=== PATIENT | male | born 1930 | race African-American/Black ===

== ENCOUNTER 2018-11-08 10:22 | Inpatient (IN) | payer MEDICARE, OTHER ==
[2018-11-08] MEDS: SOD CHLORIDE 0.9% 1,000 ML IV ×2 (10:50→15:09)
[2018-11-08 11:10] LABS: ADD MAN DIFF? NO; BASOPHIL # 0.1 10^3/ul (0.0-0.1); BASOPHILS % 0.7 % (0.0-2.0); EOSINOPHILS # 0.1 10^3/ul (0.0-0.5); EOSINOPHILS % 0.5 % (0.0-7.0); HEMATOCRIT 49.5 % (42.0-52.0); HEMOGLOBIN 15.3 g/dl (14.0-18.0); LYMPHOCYTES # 1.4 10^3/ul (0.8-2.9); LYMPHOCYTES % 9.8 % (15.0-51.0); MEAN CORPUSCULAR HEMOGLOBIN 31.2 pg (29.0-33.0); MEAN CORPUSCULAR HGB CONC 30.9 g/dl (32.0-37.0); MEAN CORPUSCULAR VOLUME 100.8 fl (82.0-101.0); MEAN PLATELET VOLUME 12.4 fl (7.4-10.4); MONOCYTE # 0.9 10^3/ul (0.3-0.9); MONOCYTES % 5.9 % (0.0-11.0); NEUTROPHILS % 82.6 % (39.0-77.0); PLATELET COUNT 198 10^3/UL (140-415); RED BLOOD COUNT 4.91 10^6/ul (4.70-6.10); RED CELL DISTRIBUTION WIDTH 14.6 % (11.5-14.5)
[2018-11-08 11:10] LABS: WHITE BLOOD COUNT 14.5 10^3/ul (4.8-10.8)
[2018-11-08 11:31] LABS: ALANINE AMINOTRANSFERASE 29 IU/L (13-69); ALBUMIN 4.5 g/dl (3.3-4.9); ALKALINE PHOSPHATASE 96 IU/L (42-121); ANION GAP 22 (5-13); ASPARTATE AMINO TRANSFERASE 22 IU/L (15-46); BILIRUBIN,INDIRECT 0.1 mg/dl (0-1.1); BILIRUBIN,TOTAL 0.1 mg/dl (0.2-1.3); CALCIUM 11.6 mg/dl (8.4-10.2); CARBON DIOXIDE 25 mmol/L (21-31); CHLORIDE 110 mmol/L (97-110); CREATININE 3.05 mg/dl (0.61-1.24); GLUCOSE 148 mg/dl (70-220); POTASSIUM 5.2 mmol/L (3.5-5.1); SODIUM 157 mmol/L (135-144); TOTAL PROTEIN 7.3 g/dl (6.1-8.1)
[2018-11-08 11:42] LABS: BLOOD UREA NITROGEN 121 mg/dl (7-20); TROPONIN-I 0.099 ng/ml (0.000-0.120)
[2018-11-08 11:46] LABS: FREE THYROXINE INDEX (Calc) 4.01 ug/ml (0.65-3.89); T3 UPTAKE 36.8 % (23.5-40.5); T4 (THYROXINE) 10.9 ug/dl (5.5-11.0)
[2018-11-08] MEDS ORDERED: ONDANSETRON 4 MG INJ IV ×2 (12:30)
[2018-11-08] MEDS ORDERED: NACL 0.9% 3 ML SYG IV (12:30)
[2018-11-08] MEDS ORDERED: ACETAMINOPHEN 325 MG TAB PO ×2 (12:30)
[2018-11-08] MEDS ORDERED: GLUCOSE GEL 15 GRAM TUBE BUCCAL (13:00)
[2018-11-08] MEDS ORDERED: GLUCOSE GEL 15 GRAM TUBE PO ×2 (13:00)
[2018-11-08] MEDS ORDERED: GLUCAGON 1 MG INJ IM (13:00)
[2018-11-08] MEDS ORDERED: DEXTROSE 50% 50 ML SYRINGE IV ×2 (13:00)
[2018-11-08] MEDS: INSULIN ASPART [NOVOLOG] 3 ML PEN SC ×3 (13:00→20:59)
[2018-11-08] MEDS: SOD CHLORIDE 0.45% 1,000 ML IV (18:06)
[2018-11-08 20:01] LABS: SODIUM,URINE RANDOM 19 mmol/L (30-90)
[2018-11-08 20:04] LABS: ADD UMIC YES; UR ASCORBIC ACID NEGATIVE (NEGATIVE); UR BACTERIA FEW /HPF (NONE SEEN); UR BILIRUBIN (Dip) NEGATIVE (NEGATIVE); UR BLOOD (Dip) NEGATIVE (NEGATIVE); UR CLARITY CLEAR (CLEAR); UR COLOR YELLOW (YELLOW); UR GLUCOSE (Dip) NEGATIVE (NEGATIVE); UR KETONES (Dip) TRACE mg/dL (NEGATIVE); UR LEUKOCYTE ESTERASE (Dip) NEGATIVE Leu/ul (NEGATIVE); UR NITRITE (Dip) NEGATIVE (NEGATIVE); UR RBC 2 /HPF (0-5); UR SPECIFIC GRAVITY (Dip) 1.017 (1.003-1.030); UR TOTAL PROTEIN (Dip) 1+ mg/dl (NEGATIVE); UR UROBILINOGEN (Dip) NEGATIVE (NEGATIVE); UR WBC 3 /HPF (0-5)
[2018-11-08 20:10] LABS: CREATININE,URINE RANDOM 119.87 mg/dl (20-370); PROTEIN/CREAT RATIO 0.34 RATIO
[2018-11-09] MEDS: INSULIN ASPART [NOVOLOG] 3 ML PEN SC ×6 (01:00→21:00)
[2018-11-09] MEDS: ACCU-CHEK XX (02:00)
[2018-11-09 05:56] LABS: ADD MAN DIFF? NO
[2018-11-09 06:01] LABS: WHITE BLOOD COUNT 12.7 10^3/ul (4.8-10.8)
[2018-11-09 06:01] LABS: BASOPHIL # 0.1 10^3/ul (0.0-0.1); BASOPHILS % 0.6 % (0.0-2.0); EOSINOPHILS # 0.1 10^3/ul (0.0-0.5); EOSINOPHILS % 1.1 % (0.0-7.0); HEMATOCRIT 40.3 % (42.0-52.0); HEMOGLOBIN 12.6 g/dl (14.0-18.0); LYMPHOCYTES % 7.6 % (15.0-51.0); MEAN CORPUSCULAR HEMOGLOBIN 31.3 pg (29.0-33.0); MEAN CORPUSCULAR HGB CONC 31.3 g/dl (32.0-37.0); MONOCYTES % 7.9 % (0.0-11.0); NEUTROPHIL # 10.5 10^3/ul (1.6-7.5); NEUTROPHILS % 82.4 % (39.0-77.0); PLATELET COUNT 154 10^3/UL (140-415); RED BLOOD COUNT 4.03 10^6/ul (4.70-6.10); RED CELL DISTRIBUTION WIDTH 14.6 % (11.5-14.5)
[2018-11-09] MEDS: SOD CHLORIDE 0.45% 1,000 ML IV ×2 (06:10→21:29)
[2018-11-09] MEDS: PANTOPRAZOLE 40 MG INJ IV (06:13)
[2018-11-09 06:35] LABS: ALANINE AMINOTRANSFERASE 19 IU/L (13-69); ALBUMIN 3.6 g/dl (3.3-4.9); ALBUMIN/GLOBULIN RATIO 1.38; ALKALINE PHOSPHATASE 75 IU/L (42-121); ANION GAP 14 (5-13); ASPARTATE AMINO TRANSFERASE 22 IU/L (15-46); BILIRUBIN,INDIRECT 0.1 mg/dl (0-1.1); BILIRUBIN,TOTAL 0.1 mg/dl (0.2-1.3); BLOOD UREA NITROGEN 113 mg/dl (7-20); CALCIUM 10.9 mg/dl (8.4-10.2); CARBON DIOXIDE 22 mmol/L (21-31); CHLORIDE 119 mmol/L (97-110); CREATININE 2.36 mg/dl (0.61-1.24); GLUCOSE 123 mg/dl (70-220); POTASSIUM 4.2 mmol/L (3.5-5.1); SODIUM 155 mmol/L (135-144); TOTAL PROTEIN 6.2 g/dl (6.1-8.1)
[2018-11-09 06:44] LABS: URIC ACID 16.2 mg/dl (3.1-7.9)
[2018-11-09 06:45] LABS: CREATINE KINASE < 20 IU/L (23-200)
[2018-11-09] MEDS: ALLOPURINOL 100 MG TAB PO (21:20)
[2018-11-09] MEDS: CINACALCET 30 MG TAB PO (21:22)
[2018-11-10] MEDS: ACCU-CHEK XX (02:00)
[2018-11-10] MEDS: PANTOPRAZOLE 40 MG INJ IV (05:27)
[2018-11-10 07:24] LABS: ADD MAN DIFF? NO
[2018-11-10] MEDS: INSULIN ASPART [NOVOLOG] 3 ML PEN SC ×4 (07:30→21:00)
[2018-11-10 07:59] LABS: ABNORMAL IP MESSAGE 1; BASOPHIL # 0.1 10^3/ul (0.0-0.1); BASOPHILS % 0.6 % (0.0-2.0); EOSINOPHILS # 0.3 10^3/ul (0.0-0.5); EOSINOPHILS % 2.9 % (0.0-7.0); HEMATOCRIT 38.6 % (42.0-52.0); LYMPHOCYTES # 0.9 10^3/ul (0.8-2.9); MEAN CORPUSCULAR HEMOGLOBIN 31.5 pg (29.0-33.0); MEAN CORPUSCULAR HGB CONC 31.1 g/dl (32.0-37.0); MEAN CORPUSCULAR VOLUME 101.3 fl (82.0-101.0); MEAN PLATELET VOLUME 13.1 fl (7.4-10.4); MONOCYTE # 0.9 10^3/ul (0.3-0.9); MONOCYTES % 10.1 % (0.0-11.0); NEUTROPHIL # 6.5 10^3/ul (1.6-7.5); NEUTROPHILS % 76.1 % (39.0-77.0); PLATELET COUNT 130 10^3/UL (140-415); POSITIVE DIFF @See below; RED BLOOD COUNT 3.81 10^6/ul (4.70-6.10); RED CELL DISTRIBUTION WIDTH 14.7 % (11.5-14.5)
[2018-11-10 07:59] LABS: WHITE BLOOD COUNT 8.6 10^3/ul (4.8-10.8)
[2018-11-10] MEDS: ATORVASTATIN 40 MG TAB PO (09:14)
[2018-11-10] MEDS: CLOPIDOGREL 75 MG TAB PO (09:14)
[2018-11-10] MEDS: ALLOPURINOL 100 MG TAB PO ×2 (09:15→21:22)
[2018-11-10] MEDS: CINACALCET 30 MG TAB PO ×2 (09:15→21:22)
[2018-11-10] MEDS: BALSAM PERU/CASTOR OIL 60 GM TUBE TOP ×2 (09:16→21:23)
[2018-11-10 10:28] LABS: ALBUMIN 3.3 g/dl (3.3-4.9); ANION GAP 11 (5-13); BLOOD UREA NITROGEN 77 mg/dl (7-20); CALCIUM 10.4 mg/dl (8.4-10.2); CARBON DIOXIDE 26 mmol/L (21-31); CHLORIDE 116 mmol/L (97-110); CREATININE 1.69 mg/dl (0.61-1.24); GLUCOSE 93 mg/dl (70-220); MAGNESIUM 1.6 mg/dl (1.7-2.5); PHOSPHORUS 3.1 mg/dl (2.5-4.9); SODIUM 153 mmol/L (135-144)
[2018-11-10] MEDS: SOD CHLORIDE 0.45% 1,000 ML IV (11:56)
[2018-11-10] MEDS: MAGNESIUM SULFATE 2 GM/50 ML 50 ML IVPB (17:51)
[2018-11-11] MEDS: ACCU-CHEK XX (02:00)
[2018-11-11] MEDS: SOD CHLORIDE 0.45% 1,000 ML IV ×2 (02:11→07:30)
[2018-11-11] MEDS: PANTOPRAZOLE 40 MG INJ IV (06:03)
[2018-11-11 06:24] LABS: ADD MAN DIFF? NO
[2018-11-11 06:29] LABS: WHITE BLOOD COUNT 6.9 10^3/ul (4.8-10.8)
[2018-11-11 06:29] LABS: ABNORMAL IP MESSAGE 1; BASOPHILS % 0.4 % (0.0-2.0); EOSINOPHILS # 0.2 10^3/ul (0.0-0.5); EOSINOPHILS % 2.7 % (0.0-7.0); HEMATOCRIT 36.9 % (42.0-52.0); HEMOGLOBIN 11.6 g/dl (14.0-18.0); LYMPHOCYTES # 0.7 10^3/ul (0.8-2.9); LYMPHOCYTES % 10.3 % (15.0-51.0); MEAN CORPUSCULAR HEMOGLOBIN 30.5 pg (29.0-33.0); MEAN CORPUSCULAR HGB CONC 31.4 g/dl (32.0-37.0); MEAN CORPUSCULAR VOLUME 97.1 fl (82.0-101.0); MEAN PLATELET VOLUME 13.3 fl (7.4-10.4); MONOCYTE # 0.8 10^3/ul (0.3-0.9); MONOCYTES % 11.1 % (0.0-11.0); NEUTROPHIL # 5.2 10^3/ul (1.6-7.5); NEUTROPHILS % 75.2 % (39.0-77.0); PLATELET COUNT 121 10^3/UL (140-415); POSITIVE DIFF @See below; RED CELL DISTRIBUTION WIDTH 14.6 % (11.5-14.5)
[2018-11-11 07:04] LABS: ALBUMIN 3.1 g/dl (3.3-4.9); ANION GAP 6 (5-13); BLOOD UREA NITROGEN 51 mg/dl (7-20); CALCIUM 9.6 mg/dl (8.4-10.2); CARBON DIOXIDE 27 mmol/L (21-31); CHLORIDE 116 mmol/L (97-110); CREATININE 1.34 mg/dl (0.61-1.24); GLUCOSE 93 mg/dl (70-220); PHOSPHORUS 2.2 mg/dl (2.5-4.9); POTASSIUM 3.3 mmol/L (3.5-5.1); SODIUM 149 mmol/L (135-144)
[2018-11-11] MEDS: INSULIN ASPART [NOVOLOG] 3 ML PEN SC ×4 (08:34→20:57)
[2018-11-11] MEDS: ALLOPURINOL 100 MG TAB PO ×2 (09:23→20:57)
[2018-11-11] MEDS: ATORVASTATIN 40 MG TAB PO (09:24)
[2018-11-11] MEDS: CINACALCET 30 MG TAB PO ×2 (09:24→20:57)
[2018-11-11] MEDS: CLOPIDOGREL 75 MG TAB PO (09:24)
[2018-11-11] MEDS: BALSAM PERU/CASTOR OIL 60 GM TUBE TOP ×2 (09:24→21:12)
[2018-11-11] MEDS: POTASSIUM PHOSPHATE 40 MEQ in SOD CHLORIDE 0.9% 250 ML IVPB (10:05)
[2018-11-11] MEDS: D5W + KCL 20 MEQ 1,000 ML IV ×2 (10:05→23:50)
[2018-11-12] MEDS: ACCU-CHEK XX (02:00)
[2018-11-12 05:48] LABS: ADD MAN DIFF? NO
[2018-11-12 05:54] LABS: ABNORMAL IP MESSAGE 1; BASOPHILS % 0.5 % (0.0-2.0); EOSINOPHILS # 0.1 10^3/ul (0.0-0.5); EOSINOPHILS % 2.1 % (0.0-7.0); HEMATOCRIT 34.6 % (42.0-52.0); HEMOGLOBIN 10.8 g/dl (14.0-18.0); LYMPHOCYTES # 0.7 10^3/ul (0.8-2.9); LYMPHOCYTES % 12.9 % (15.0-51.0); MEAN CORPUSCULAR HEMOGLOBIN 30.9 pg (29.0-33.0); MEAN CORPUSCULAR HGB CONC 31.2 g/dl (32.0-37.0); MEAN CORPUSCULAR VOLUME 99.1 fl (82.0-101.0); MEAN PLATELET VOLUME 13.6 fl (7.4-10.4); MONOCYTE # 0.7 10^3/ul (0.3-0.9); MONOCYTES % 13.2 % (0.0-11.0); NEUTROPHILS % 70.9 % (39.0-77.0); PLATELET COUNT 104 10^3/UL (140-415); POSITIVE DIFF @See below; RED BLOOD COUNT 3.49 10^6/ul (4.70-6.10); RED CELL DISTRIBUTION WIDTH 14.5 % (11.5-14.5)
[2018-11-12 05:54] LABS: WHITE BLOOD COUNT 5.6 10^3/ul (4.8-10.8)
[2018-11-12 06:25] LABS: ALBUMIN 2.8 g/dl (3.3-4.9); ANION GAP 6 (5-13); BLOOD UREA NITROGEN 38 mg/dl (7-20); CALCIUM 8.5 mg/dl (8.4-10.2); CARBON DIOXIDE 26 mmol/L (21-31); CHLORIDE 110 mmol/L (97-110); CREATININE 1.33 mg/dl (0.61-1.24); GLUCOSE 103 mg/dl (70-220); MAGNESIUM 1.5 mg/dl (1.7-2.5); PHOSPHORUS 2.8 mg/dl (2.5-4.9); POTASSIUM 3.4 mmol/L (3.5-5.1); SODIUM 142 mmol/L (135-144)
[2018-11-12] MEDS: PANTOPRAZOLE 40 MG INJ IV (06:48)
[2018-11-12] MEDS: D5W + KCL 20 MEQ 1,000 ML IV ×4 (06:49→22:56)
[2018-11-12] MEDS: INSULIN ASPART [NOVOLOG] 3 ML PEN SC ×4 (07:30→21:00)
[2018-11-12] MEDS: ALLOPURINOL 100 MG TAB PO ×2 (09:00→21:00)
[2018-11-12] MEDS: ATORVASTATIN 40 MG TAB PO (09:00)
[2018-11-12] MEDS: CINACALCET 30 MG TAB PO ×2 (09:00→21:00)
[2018-11-12] MEDS: BALSAM PERU/CASTOR OIL 60 GM TUBE TOP ×2 (09:01→21:05)
[2018-11-12] MEDS: CLOPIDOGREL 75 MG TAB PO (09:01)
[2018-11-12] MEDS: POTASSIUM CHLORIDE 100 ML IVPB (09:40)
[2018-11-12] MEDS ORDERED: POTASSIUM CHLORIDE (SR) 20 MEQ TAB PO (11:50)
[2018-11-12] MEDS: MAGNESIUM SULFATE 2 GM/50 ML 50 ML IVPB (11:52)
[2018-11-12] MEDS: POTASSIUM CHLORIDE 20 MEQ POWDER FOR ORAL SOLN PO (13:11)
[2018-11-12] MEDS: HEPARIN 5,000 UNIT/1 ML VIAL SC ×2 (13:13→21:04)
[2018-11-13] MEDS: ACCU-CHEK XX (02:00)
[2018-11-13] MEDS: PANTOPRAZOLE 40 MG INJ IV (06:17)
[2018-11-13 06:38] LABS: ANION GAP 9 (5-13); BLOOD UREA NITROGEN 26 mg/dl (7-20); CALCIUM 8.4 mg/dl (8.4-10.2); CARBON DIOXIDE 24 mmol/L (21-31); CHLORIDE 107 mmol/L (97-110); CREATININE 1.07 mg/dl (0.61-1.24); GLUCOSE 113 mg/dl (70-220); POTASSIUM 4.2 mmol/L (3.5-5.1); SODIUM 140 mmol/L (135-144)
[2018-11-13] MEDS: D5W + KCL 20 MEQ 1,000 ML IV ×4 (07:27→20:34)
[2018-11-13] MEDS: INSULIN ASPART [NOVOLOG] 3 ML PEN SC ×4 (07:30→20:24)
[2018-11-13] MEDS: CINACALCET 30 MG TAB PO ×2 (08:07→20:26)
[2018-11-13] MEDS: CLOPIDOGREL 75 MG TAB PO (08:08)
[2018-11-13] MEDS: ALLOPURINOL 100 MG TAB PO ×2 (08:08→20:26)
[2018-11-13] MEDS: ATORVASTATIN 40 MG TAB PO (08:09)
[2018-11-13] MEDS: BALSAM PERU/CASTOR OIL 60 GM TUBE TOP ×2 (08:11→20:32)
[2018-11-13] MEDS: HEPARIN 5,000 UNIT/1 ML VIAL SC ×2 (08:11→20:25)
[2018-11-14] MEDS: ACCU-CHEK XX (02:00)
[2018-11-14] MEDS: PANTOPRAZOLE 40 MG INJ IV (06:49)
[2018-11-14] MEDS: D5W + KCL 20 MEQ 1,000 ML IV ×2 (07:07→09:22)
[2018-11-14] MEDS: INSULIN ASPART [NOVOLOG] 3 ML PEN SC ×3 (07:30→17:16)
[2018-11-14] MEDS: ATORVASTATIN 40 MG TAB PO (09:25)
[2018-11-14] MEDS: ALLOPURINOL 100 MG TAB PO (09:25)
[2018-11-14] MEDS: CINACALCET 30 MG TAB PO (09:26)
[2018-11-14] MEDS: CLOPIDOGREL 75 MG TAB PO (09:26)
[2018-11-14] MEDS: HEPARIN 5,000 UNIT/1 ML VIAL SC (09:27)
[2018-11-14] MEDS: BALSAM PERU/CASTOR OIL 60 GM TUBE TOP (09:28)
== END 2018-11-14 17:35 | DRG 682 ==
LOC: E/R 10:22 → PP2 12:06
PROVIDERS: Internal Medicine
DX: N17.0 Acute kidney failure with tubular necrosis (principal); E43 Unspecified severe protein-calorie malnutrition; R64 Cachexia; Z68.1 Body mass index [BMI] 19.9 or less, adult; E87.0 Hyperosmolality and hypernatremia; R62.7 Adult failure to thrive; E86.0 Dehydration; I12.9 Hypertensive chronic kidney disease with stage 1 through stage 4 chronic kidney disease, or unspecified chronic kidney disease; E11.22 Type 2 diabetes mellitus with diabetic chronic kidney disease; N18.9 Chronic kidney disease, unspecified; F03.90 Unspecified dementia, unspecified severity, without behavioral disturbance, psychotic disturbance, mood disturbance, and anxiety; E78.5 Hyperlipidemia, unspecified; E87.5 Hyperkalemia; E21.3 Hyperparathyroidism, unspecified; I25.10 Atherosclerotic heart disease of native coronary artery without angina pectoris; E03.9 Hypothyroidism, unspecified; I25.2 Old myocardial infarction; Z95.5 Presence of coronary angioplasty implant and graft; Z86.73 Personal history of transient ischemic attack (TIA), and cerebral infarction without residual deficits
CPT/HCPCS: 70450; 71045; 76775; 80048; 80053; 80069; 81001; 81003; 82550; 82570; 82962; 83036; 83735; 84300; 84436; 84479; 84484; 84560; 85025; 89190; 92610; 93005; 96360; 97110; 97116; 97162; 97167; 97530; 97535; 99285-25

== ENCOUNTER 2018-11-23 19:11 | Inpatient (IN) | payer MEDICARE, OTHER ==
[2018-11-23 19:55] LABS: ADD MAN DIFF? NO
[2018-11-23 20:09] LABS: WHITE BLOOD COUNT 7.6 10^3/ul (4.8-10.8)
[2018-11-23 20:09] LABS: BASOPHIL # 0.1 10^3/ul (0.0-0.1); BASOPHILS % 0.8 % (0.0-2.0); EOSINOPHILS # 0.4 10^3/ul (0.0-0.5); EOSINOPHILS % 4.6 % (0.0-7.0); HEMOGLOBIN 11.6 g/dl (14.0-18.0); LYMPHOCYTES # 1.3 10^3/ul (0.8-2.9); LYMPHOCYTES % 16.4 % (15.0-51.0); MEAN CORPUSCULAR HEMOGLOBIN 30.8 pg (29.0-33.0); MEAN CORPUSCULAR HGB CONC 31.4 g/dl (32.0-37.0); MEAN CORPUSCULAR VOLUME 98.1 fl (82.0-101.0); MEAN PLATELET VOLUME 11.5 fl (7.4-10.4); MONOCYTE # 0.5 10^3/ul (0.3-0.9); MONOCYTES % 6.8 % (0.0-11.0); NEUTROPHIL # 5.4 10^3/ul (1.6-7.5); NEUTROPHILS % 71.1 % (39.0-77.0); PLATELET COUNT 207 10^3/UL (140-415); RED BLOOD COUNT 3.77 10^6/ul (4.70-6.10); RED CELL DISTRIBUTION WIDTH 14.5 % (11.5-14.5)
[2018-11-23] MEDS: CEFTRIAXONE 1 GM/50 ML (PMX) 50 ML IVPB (20:11)
[2018-11-23] MEDS: SODIUM CHLORIDE 0.9% 1L BAG IV* (20:11)
[2018-11-23 20:16] LABS: INR 0.86; PROTIME 11.8 Sec (11.9-14.9); PT RATIO 0.9
[2018-11-23 20:17] LABS: PARTIAL THROMBOPLASTIN TIME 25.8 Sec (23.0-35.0)
[2018-11-23 20:19] LABS: ALANINE AMINOTRANSFERASE 15 IU/L (13-69); ALBUMIN 3.5 g/dl (3.3-4.9); ALBUMIN/GLOBULIN RATIO 1.16; ALKALINE PHOSPHATASE 87 IU/L (42-121); ASPARTATE AMINO TRANSFERASE 24 IU/L (15-46); BILIRUBIN,INDIRECT 0.1 mg/dl (0-1.1); BILIRUBIN,TOTAL 0.1 mg/dl (0.2-1.3); BLOOD UREA NITROGEN 42 mg/dl (7-20); CALCIUM 10.2 mg/dl (8.4-10.2); CARBON DIOXIDE 30 mmol/L (21-31); CREATININE 1.65 mg/dl (0.61-1.24); GLUCOSE 119 mg/dl (70-220); POTASSIUM 4.9 mmol/L (3.5-5.1); SODIUM 145 mmol/L (135-144); TOTAL PROTEIN 6.5 g/dl (6.1-8.1)
[2018-11-23 20:26] LABS: ANION GAP 10 (5-13); CHLORIDE 105 mmol/L (97-110)
[2018-11-23] MEDS ORDERED: ACETAMINOPHEN 325 MG TAB PO (20:30)
[2018-11-23] MEDS ORDERED: ONDANSETRON 4 MG INJ IV (20:30)
[2018-11-23 20:31] LABS: TROPONIN-I 0.028 ng/ml (0.000-0.120)
[2018-11-23 21:29] LABS: ADD UMIC YES; UR ASCORBIC ACID NEGATIVE (NEGATIVE); UR BACTERIA FEW /HPF (NONE SEEN); UR BILIRUBIN (Dip) NEGATIVE (NEGATIVE); UR BLOOD (Dip) 2+ mg/dL (NEGATIVE); UR CLARITY CLEAR (CLEAR); UR COLOR YELLOW (YELLOW); UR GLUCOSE (Dip) NEGATIVE (NEGATIVE); UR KETONES (Dip) TRACE mg/dL (NEGATIVE); UR LEUKOCYTE ESTERASE (Dip) NEGATIVE Leu/ul (NEGATIVE); UR NITRITE (Dip) NEGATIVE (NEGATIVE); UR RBC 58 /HPF (0-5); UR SPECIFIC GRAVITY (Dip) 1.018 (1.003-1.030); UR TOTAL PROTEIN (Dip) NEGATIVE (NEGATIVE); UR UROBILINOGEN (Dip) NEGATIVE (NEGATIVE); UR WBC 8 /HPF (0-5)
[2018-11-24 01:13] LABS: LACTIC ACID 1.3 mmol/L (0.5-2.0)
[2018-11-24] MEDS ORDERED: metFORMIN 500 MG TAB PO (08:00)
[2018-11-24] MEDS: ACCU-CHEK XX ×4 (08:00→20:47)
[2018-11-24] MEDS: CINACALCET 30 MG TAB PO ×2 (09:00→21:00)
[2018-11-24] MEDS: CLOPIDOGREL 75 MG TAB PO (09:11)
[2018-11-24] MEDS: ZINC SULFATE 220 MG CAP PO (09:11)
[2018-11-24] MEDS: MULTIVITAMINS/MINERALS TAB PO (09:12)
[2018-11-24] MEDS: ASCORBIC ACID 500 MG TAB PO (09:13)
[2018-11-24] MEDS: ALLOPURINOL 100 MG TAB PO ×2 (09:15→20:42)
[2018-11-24] MEDS: D5W-0.45 NACL + KCL 20 MEQ 1,000 ML IV (17:15)
[2018-11-24] MEDS: ATORVASTATIN 40 MG TAB PO (20:42)
[2018-11-25] MEDS: D5W-0.45 NACL + KCL 20 MEQ 1,000 ML IV ×2 (04:51→17:26)
[2018-11-25] MEDS: CINACALCET 30 MG TAB PO ×2 (08:36→20:59)
[2018-11-25] MEDS: CLOPIDOGREL 75 MG TAB PO (08:36)
[2018-11-25] MEDS: MULTIVITAMINS/MINERALS TAB PO (08:36)
[2018-11-25] MEDS: ALLOPURINOL 100 MG TAB PO ×2 (08:37→20:59)
[2018-11-25] MEDS: ZINC SULFATE 220 MG CAP PO (08:37)
[2018-11-25] MEDS: ASCORBIC ACID 500 MG TAB PO (08:37)
[2018-11-25] MEDS: ACCU-CHEK XX ×4 (08:51→21:00)
[2018-11-25 12:19] LABS: ADD MAN DIFF? NO
[2018-11-25 12:22] LABS: WHITE BLOOD COUNT 5.1 10^3/ul (4.8-10.8)
[2018-11-25 12:22] LABS: BASOPHILS % 0.6 % (0.0-2.0); EOSINOPHILS # 0.2 10^3/ul (0.0-0.5); EOSINOPHILS % 4.8 % (0.0-7.0); HEMATOCRIT 35.6 % (42.0-52.0); HEMOGLOBIN 11.1 g/dl (14.0-18.0); LYMPHOCYTES # 0.7 10^3/ul (0.8-2.9); LYMPHOCYTES % 14.5 % (15.0-51.0); MEAN CORPUSCULAR HEMOGLOBIN 30.9 pg (29.0-33.0); MEAN CORPUSCULAR HGB CONC 31.2 g/dl (32.0-37.0); MEAN CORPUSCULAR VOLUME 99.2 fl (82.0-101.0); MEAN PLATELET VOLUME 11.3 fl (7.4-10.4); MONOCYTE # 0.3 10^3/ul (0.3-0.9); MONOCYTES % 6.5 % (0.0-11.0); NEUTROPHIL # 3.7 10^3/ul (1.6-7.5); NEUTROPHILS % 73.2 % (39.0-77.0); PLATELET COUNT 163 10^3/UL (140-415); RED BLOOD COUNT 3.59 10^6/ul (4.70-6.10); RED CELL DISTRIBUTION WIDTH 14.3 % (11.5-14.5)
[2018-11-25 12:41] LABS: ANION GAP 6 (5-13); BLOOD UREA NITROGEN 20 mg/dl (7-20); CALCIUM 10.1 mg/dl (8.4-10.2); CARBON DIOXIDE 27 mmol/L (21-31); CHLORIDE 109 mmol/L (97-110); CREATININE 1.17 mg/dl (0.61-1.24); GLUCOSE 118 mg/dl (70-220); POTASSIUM 4.4 mmol/L (3.5-5.1); SODIUM 142 mmol/L (135-144)
[2018-11-25] MEDS: ATORVASTATIN 40 MG TAB PO (20:59)
[2018-11-26] MEDS: D5W-0.45 NACL + KCL 20 MEQ 1,000 ML IV ×2 (06:02→17:30)
[2018-11-26 07:30] LABS: ADD MAN DIFF? NO
[2018-11-26 07:44] LABS: BASOPHILS % 0.4 % (0.0-2.0); EOSINOPHILS # 0.3 10^3/ul (0.0-0.5); EOSINOPHILS % 5.5 % (0.0-7.0); HEMOGLOBIN 10.8 g/dl (14.0-18.0); LYMPHOCYTES # 0.9 10^3/ul (0.8-2.9); LYMPHOCYTES % 17.2 % (15.0-51.0); MEAN CORPUSCULAR HEMOGLOBIN 30.9 pg (29.0-33.0); MEAN CORPUSCULAR HGB CONC 30.9 g/dl (32.0-37.0); MONOCYTE # 0.4 10^3/ul (0.3-0.9); MONOCYTES % 8.1 % (0.0-11.0); NEUTROPHIL # 3.4 10^3/ul (1.6-7.5); NEUTROPHILS % 68.4 % (39.0-77.0); PLATELET COUNT 148 10^3/UL (140-415); RED CELL DISTRIBUTION WIDTH 14.4 % (11.5-14.5)
[2018-11-26 07:44] LABS: WHITE BLOOD COUNT 4.9 10^3/ul (4.8-10.8)
[2018-11-26 08:01] LABS: ANION GAP 7 (5-13); BLOOD UREA NITROGEN 17 mg/dl (7-20); CALCIUM 9.4 mg/dl (8.4-10.2); CARBON DIOXIDE 26 mmol/L (21-31); CHLORIDE 107 mmol/L (97-110); GLUCOSE 113 mg/dl (70-220); SODIUM 140 mmol/L (135-144)
[2018-11-26] MEDS: MULTIVITAMINS/MINERALS TAB PO (08:47)
[2018-11-26] MEDS: ALLOPURINOL 100 MG TAB PO ×2 (08:47→21:00)
[2018-11-26] MEDS: ZINC SULFATE 220 MG CAP PO (08:47)
[2018-11-26] MEDS: ASCORBIC ACID 500 MG TAB PO (08:47)
[2018-11-26] MEDS: CINACALCET 30 MG TAB PO ×2 (08:47→21:00)
[2018-11-26] MEDS: ACCU-CHEK XX ×4 (08:47→21:00)
[2018-11-26] MEDS: CLOPIDOGREL 75 MG TAB PO (08:47)
[2018-11-26] MEDS: CEFAZOLIN 2 GM/50 ML (PMX) 50 ML IVPB (15:17)
[2018-11-26] MEDS: PROPOFOL 20 ML (15:17)
[2018-11-26] MEDS ORDERED: HYDROmorphONE 1 MG/5 ML IV SYRINGE IV (15:30)
[2018-11-26] MEDS ORDERED: ONDANSETRON 4 MG INJ IV (15:30)
[2018-11-26] MEDS: LIDOCAINE 2% (SDV) 5 ML INJ (18:30)
[2018-11-26] MEDS: ATORVASTATIN 40 MG TAB PO (21:00)
[2018-11-27] MEDS: D5W-0.45 NACL + KCL 20 MEQ 1,000 ML IV (04:51)
[2018-11-27] MEDS: ACCU-CHEK XX (07:00)
[2018-11-27] MEDS: CINACALCET 30 MG TAB PO ×2 (08:18→20:28)
[2018-11-27] MEDS: CLOPIDOGREL 75 MG TAB PO (08:18)
[2018-11-27] MEDS: MULTIVITAMINS/MINERALS TAB PO (08:19)
[2018-11-27] MEDS: ASCORBIC ACID 500 MG TAB PO (08:19)
[2018-11-27] MEDS: ALLOPURINOL 100 MG TAB PO ×2 (08:19→20:27)
[2018-11-27] MEDS: ZINC SULFATE 220 MG CAP PO (08:19)
[2018-11-27 08:50] LABS: ADD MAN DIFF? NO
[2018-11-27 08:58] LABS: WHITE BLOOD COUNT 5.9 10^3/ul (4.8-10.8)
[2018-11-27 08:58] LABS: ABNORMAL IP MESSAGE 1; BASOPHILS % 0.3 % (0.0-2.0); EOSINOPHILS # 0.1 10^3/ul (0.0-0.5); EOSINOPHILS % 1.4 % (0.0-7.0); HEMATOCRIT 35.7 % (42.0-52.0); HEMOGLOBIN 11.2 g/dl (14.0-18.0); LYMPHOCYTES # 0.5 10^3/ul (0.8-2.9); LYMPHOCYTES % 8.9 % (15.0-51.0); MEAN CORPUSCULAR HEMOGLOBIN 30.8 pg (29.0-33.0); MEAN CORPUSCULAR HGB CONC 31.4 g/dl (32.0-37.0); MEAN CORPUSCULAR VOLUME 98.1 fl (82.0-101.0); MEAN PLATELET VOLUME 12.2 fl (7.4-10.4); MONOCYTE # 0.4 10^3/ul (0.3-0.9); MONOCYTES % 7.2 % (0.0-11.0); NEUTROPHIL # 4.8 10^3/ul (1.6-7.5); NEUTROPHILS % 81.7 % (39.0-77.0); PLATELET COUNT 158 10^3/UL (140-415); POSITIVE DIFF @See below; RED BLOOD COUNT 3.64 10^6/ul (4.70-6.10); RED CELL DISTRIBUTION WIDTH 14.1 % (11.5-14.5)
[2018-11-27 09:20] LABS: ANION GAP 6 (5-13); BLOOD UREA NITROGEN 16 mg/dl (7-20); CALCIUM 9.8 mg/dl (8.4-10.2); CARBON DIOXIDE 28 mmol/L (21-31); CHLORIDE 106 mmol/L (97-110); CREATININE 1.07 mg/dl (0.61-1.24); GLUCOSE 124 mg/dl (70-220); POTASSIUM 4.7 mmol/L (3.5-5.1); SODIUM 140 mmol/L (135-144)
[2018-11-27] MEDS ORDERED: GLUCAGON 1 MG INJ IM (09:30)
[2018-11-27] MEDS ORDERED: GLUCOSE GEL 15 GRAM TUBE BUCCAL (09:30)
[2018-11-27] MEDS ORDERED: GLUCOSE GEL 15 GRAM TUBE PO ×2 (09:30)
[2018-11-27] MEDS ORDERED: DEXTROSE 50% 50 ML SYRINGE IV ×2 (09:30)
[2018-11-27] MEDS: INSULIN ASPART [NOVOLOG] 3 ML PEN SC ×2 (12:00→18:00)
[2018-11-27] MEDS: ATORVASTATIN 40 MG TAB PO (20:28)
[2018-11-28] MEDS: INSULIN ASPART [NOVOLOG] 3 ML PEN SC ×5 (00:11→23:31)
[2018-11-28] MEDS: ACETAMINOPHEN 325 MG TAB PO (02:19)
[2018-11-28] MEDS: D5W-0.45 NACL + KCL 20 MEQ 1,000 ML IV (02:19)
[2018-11-28] MEDS: ALLOPURINOL 100 MG TAB PO ×2 (08:35→20:25)
[2018-11-28] MEDS: CLOPIDOGREL 75 MG TAB PO (08:35)
[2018-11-28] MEDS: ZINC SULFATE 220 MG CAP PO (08:36)
[2018-11-28] MEDS: ASCORBIC ACID 500 MG TAB PO (08:36)
[2018-11-28] MEDS: MULTIVITAMINS/MINERALS TAB PO (08:36)
[2018-11-28] MEDS: CINACALCET 30 MG TAB PO ×2 (08:36→20:25)
[2018-11-28] MEDS: INFLUENZA VIRUS VACCINE 0.5 ML (DISPENSING) IM* (08:37)
[2018-11-28] MEDS: ATORVASTATIN 40 MG TAB PO (20:25)
[2018-11-29] MEDS: D5W-0.45 NACL + KCL 20 MEQ 1,000 ML IV ×2 (02:43→03:50)
[2018-11-29] MEDS: INSULIN ASPART [NOVOLOG] 3 ML PEN SC ×4 (06:29→23:33)
[2018-11-29] MEDS: CINACALCET 30 MG TAB PO ×2 (08:27→21:24)
[2018-11-29] MEDS: ALLOPURINOL 100 MG TAB PO ×2 (08:27→20:41)
[2018-11-29] MEDS: ZINC SULFATE 220 MG CAP PO (08:27)
[2018-11-29] MEDS: MULTIVITAMINS/MINERALS TAB PO (08:27)
[2018-11-29] MEDS: CLOPIDOGREL 75 MG TAB PO (08:27)
[2018-11-29] MEDS: ASCORBIC ACID 500 MG TAB PO (08:28)
[2018-11-29] MEDS: ATORVASTATIN 40 MG TAB PO (20:41)
[2018-11-30] MEDS: D5W-0.45 NACL + KCL 20 MEQ 1,000 ML IV (03:47)
[2018-11-30] MEDS: INSULIN ASPART [NOVOLOG] 3 ML PEN SC ×3 (06:37→17:41)
[2018-11-30] MEDS: CLOPIDOGREL 75 MG TAB PO (08:26)
[2018-11-30] MEDS: MULTIVITAMINS/MINERALS TAB PO (08:26)
[2018-11-30] MEDS: ALLOPURINOL 100 MG TAB PO ×2 (08:28→20:44)
[2018-11-30] MEDS: ZINC SULFATE 220 MG CAP PO (08:28)
[2018-11-30] MEDS: ASCORBIC ACID 500 MG TAB PO (08:28)
[2018-11-30] MEDS: CINACALCET 30 MG TAB PO ×3 (08:28→20:44)
[2018-11-30] MEDS: ACETAMINOPHEN 325 MG TAB PO (20:43)
[2018-11-30] MEDS: SENNA TAB PO (20:44)
[2018-11-30] MEDS: ATORVASTATIN 40 MG TAB PO (20:44)
[2018-12-01] MEDS: INSULIN ASPART [NOVOLOG] 3 ML PEN SC ×3 (05:48→12:13)
[2018-12-01] MEDS: D5W-0.45 NACL + KCL 20 MEQ 1,000 ML IV (05:49)
[2018-12-01 06:39] LABS: ADD MAN DIFF? NO
[2018-12-01 06:59] LABS: WHITE BLOOD COUNT 3.4 10^3/ul (4.8-10.8)
[2018-12-01 06:59] LABS: BASOPHILS % 0.6 % (0.0-2.0); EOSINOPHILS # 0.1 10^3/ul (0.0-0.5); EOSINOPHILS % 1.7 % (0.0-7.0); HEMATOCRIT 31.1 % (42.0-52.0); HEMOGLOBIN 9.7 g/dl (14.0-18.0); LYMPHOCYTES # 0.9 10^3/ul (0.8-2.9); LYMPHOCYTES % 25.3 % (15.0-51.0); MEAN CORPUSCULAR HGB CONC 31.2 g/dl (32.0-37.0); MEAN CORPUSCULAR VOLUME 99.4 fl (82.0-101.0); MEAN PLATELET VOLUME 12.4 fl (7.4-10.4); MONOCYTE # 0.4 10^3/ul (0.3-0.9); MONOCYTES % 10.8 % (0.0-11.0); NEUTROPHIL # 2.1 10^3/ul (1.6-7.5); PLATELET COUNT 137 10^3/UL (140-415); RED BLOOD COUNT 3.13 10^6/ul (4.70-6.10); RED CELL DISTRIBUTION WIDTH 14.5 % (11.5-14.5)
[2018-12-01 07:08] LABS: ANION GAP 12 (5-13); BLOOD UREA NITROGEN 24 mg/dl (7-20); CALCIUM 8.1 mg/dl (8.4-10.2); CARBON DIOXIDE 25 mmol/L (21-31); CHLORIDE 94 mmol/L (97-110); CREATININE 0.93 mg/dl (0.61-1.24); GLUCOSE 149 mg/dl (70-220); POTASSIUM 4.6 mmol/L (3.5-5.1); SODIUM 131 mmol/L (135-144)
[2018-12-01] MEDS: ZINC SULFATE 220 MG CAP PO (09:09)
[2018-12-01] MEDS: CLOPIDOGREL 75 MG TAB PO (09:10)
[2018-12-01] MEDS: ALLOPURINOL 100 MG TAB PO (09:10)
[2018-12-01] MEDS: ASCORBIC ACID 500 MG TAB PO (09:10)
[2018-12-01] MEDS: SENNA TAB PO (09:10)
[2018-12-01] MEDS: MULTIVITAMINS/MINERALS TAB PO (09:10)
[2018-12-01] MEDS: CINACALCET 30 MG TAB PO (10:52)
[2018-12-01] MEDS: SOD CHLORIDE 0.9% 250 ML IV (10:52)
== END 2018-12-01 14:20 | DRG 640 ==
LOC: 5EC 20:15 → E/R 19:11
PROC: 0DJ08ZZ Inspection of Upper Intestinal Tract, Via Natural or Artificial Opening Endoscopic (ICD-10-PCS; principal; 2018-11-26 12:00)
PROC: 0DH63UZ Insertion of Feeding Device into Stomach, Percutaneous Approach (ICD-10-PCS; 2018-11-26 12:00)
DX: E86.0 Dehydration (principal); E43 Unspecified severe protein-calorie malnutrition; R64 Cachexia; Z68.1 Body mass index [BMI] 19.9 or less, adult; N17.9 Acute kidney failure, unspecified; E11.22 Type 2 diabetes mellitus with diabetic chronic kidney disease; J44.9 Chronic obstructive pulmonary disease, unspecified; F03.90 Unspecified dementia, unspecified severity, without behavioral disturbance, psychotic disturbance, mood disturbance, and anxiety; I25.10 Atherosclerotic heart disease of native coronary artery without angina pectoris; I12.9 Hypertensive chronic kidney disease with stage 1 through stage 4 chronic kidney disease, or unspecified chronic kidney disease; N18.9 Chronic kidney disease, unspecified; R62.7 Adult failure to thrive; Z79.4 Long term (current) use of insulin; Z79.84 Long term (current) use of oral hypoglycemic drugs; Z87.891 Personal history of nicotine dependence; Z95.5 Presence of coronary angioplasty implant and graft; Z86.73 Personal history of transient ischemic attack (TIA), and cerebral infarction without residual deficits
CPT/HCPCS: 71045; 80048; 80053; 81001; 82962; 83605; 84484; 85025; 85610; 85730; 87040; 87081; 87086; 90686; 93005; 96374; 99285-25